=== PATIENT | male | born 1980 | race Hispanic/Latino ===

== ENCOUNTER 2016-12-15 10:29 | Emergency (ER) | payer BC, OTHER ==
[2016-12-15 10:51] VITALS: TEMP 98.3
[2016-12-15 10:55] VITALS: BMI 28.7
[2016-12-15] MEDS ORDERED: Multivitamin (MVI) 10 ML, Thiamine 100 MG, Folic Acid 1 MG in Sodium Chloride 0.9% 1,00... IV ONE (11:04)
--- NOTE | 2016-12-15 11:09 | ED PDOC ---
Arrival/HPI <Sunil Lewis - Last Filed: 12/15/16 11:37> - General Historian: Patient - History of Present Illness Time/Duration: Other (see hpi) Context: Home <Neeta Del Real - Last Filed: 12/18/16 20:05> - General Chief Complaint: High Blood Pressure Time Seen by Provider: 12/15/16 10:33 - History of Present Illness Narrative History of Present Illness (Text): 12/15/16 11:06 This 36 yo female presents to this ED c/o HTN x [employer]. Patient stated he has not taken his BP medication EDARBI, for over 4 weeks. Patient noted he is an alcoholic, and his last drink was 4 days ago. Denies ROBERTS, diplopia, dysarthria, weakness, paresthesias, sob, cp, abdominal pain, dizziness, cms, n/v, or abnormal gait. Denies palpitation or tremors. (Neeta Del Real) Past Medical History - Provider Review Nursing Documentation Reviewed: Yes - Infectious Disease Hx of Infectious Diseases: None - Tetanus Immunization Tetanus Immunization: Unknown - Past Medical History Past Medical History: No Previous - Cardiac Hx Hypertension: Yes Hx Pacemaker: No - Pulmonary Hx Respiratory Disorders: No - Neurological Hx Neurological Disorder: No Hx Paralysis: No - HEENT Hx HEENT Disorder: No - Renal Hx Renal Disorder: No - Endocrine/Metabolic Hx Endocrine Disorders: No - Hematological/Oncological Hx Blood Disorders: No Hx Blood Transfusions: No Hx Blood Transfusion Reaction: No - Integumentary Hx Dermatological Disorder: No - Musculoskeletal/Rheumatological Hx Fractures: Yes (jaw) - Gastrointestinal Hx Gastrointestinal Disorders: No - Genitourinary/Gynecological Hx Genitourinary Disorders: No - Psychiatric Hx Depression: No Hx Substance Use: No - Past Surgical History Past Surgical History: No Previous - Surgical History Hx Orthopedic Surgery: Yes (knee, back) Other/Comment: 2 back surgeries, l4 l5 and l5 s1 2005 and 2007, tonsils nd adenoids,right knee torn meniscus 2014 - Anesthesia Hx Anesthesia: Yes Hx Anesthesia Reactions: No Hx Malignant Hyperthermia: No - Suicidal Assessment Feels Threatened In Home Enviroment: No <Neeta Del Real - Last Filed: 12/18/16 20:05> Family/Social History - Physician Review Nursing Documentation Reviewed: Yes Family/Social History: No Known Family HX Smoking Status: Light Smoker < 10 Cigarettes Daily Hx Alcohol Use: Yes (2 days a week, smokes when drinking) Hx Substance Use: No Hx Substance Use Treatment: No <Neeta Del Real P - Last Filed: 12/18/16 20:05> Allergies/Home Meds <Sunil Lewis - Last Filed: 12/15/16 11:37> <Neeta Del Real - Last Filed: 12/18/16 20:05> Allergies/Adverse Reactions: Allergies No Known Allergies Allergy (Verified 01/26/12 01:50) Home Medications: Home Meds Medication Instructions Recorded Confirmed Azilsartan Medoxomil [Edarbi] 80 mg PO DAILY 07/07/15 12/15/16 Review of Systems - Review of Systems Constitutional: Normal. absent: Fatigue, Weight Change, Fevers, Night Sweats Eyes: Normal ENT: Normal Respiratory: Normal. absent: SOB, Cough Cardiovascular: Normal. absent: Chest Pain, Palpitations Gastrointestinal: Normal. absent: Abdominal Pain, Nausea, Vomiting Genitourinary Male: Normal. absent: Hematuria Musculoskeletal: Normal. absent: Arthralgias, Back Pain, Neck Pain Skin: Normal. absent: Rash Neurological: Normal. absent: Headache, Dizziness, Focal Weakness, Gait Changes , Speech Changes, Facial Droop, Disequilibrium, Seizure Endocrine: Normal Hemo/Lymphatic: Normal Psychiatric: Normal. absent: Anxiety, Depression, Suicidal Ideation <Neeta Del Real P - Last Filed: 12/18/16 20:05> Physical Exam Temperature: Afebrile Blood Pressure: Hypertensive Pulse: Regular Respiratory Rate: Normal Appearance: Positive for: Well-Appearing, Non-Toxic, Comfortable Pain Distress: None Mental Status: Positive for: Alert and Oriented X 3 - Systems Exam Head: Present: Atraumatic, Normocephalic Pupils: Present: PERRL Extroacular Muscles: Present: EOMI Conjunctiva: Present: Normal Mouth: Present: Moist Mucous Membranes Neck: Present: Normal Range of Motion Respiratory/Chest: Present: Clear to Auscultation, Good Air Exchange. No: Respiratory Distress, Accessory Muscle Use Cardiovascular: Present: Regular Rate and Rhythm, Normal S1, S2. No: Murmurs Abdomen: Present: Normal Bowel Sounds. No: Tenderness, Distention, Peritoneal Signs Back: Present: Normal Inspection Upper Extremity: Present: Normal Inspection, Normal ROM, NORMAL PULSES, Neurovascularly Intact, Capillary Refill < 2s. No: Cyanosis, Edema Lower Extremity: Present: Normal Inspection, NORMAL PULSES, Normal ROM, Neurovascularly Intact, Capillary Refill < 2 s. No: Edema, CALF TENDERNESS Neurological: Present: GCS=15, CN II-XII Intact, Speech Normal, Motor Func Grossly Intact, Normal Sensory Function, Normal Cerebellar Funct, Norm Deep Tendon Reflexes, Gait Normal, Memory Normal Skin: Present: Warm, Dry, Normal Color. No: Rashes Psychiatric: Present: Alert, Oriented x 3, Normal Insight, Normal Concentration <Neeta Del Real - Last Filed: 12/18/16 20:05> Vital Signs Temp Pulse Resp BP Pulse Ox 12/15/16 14:48 87 18 152/102 H 98 12/15/16 13:26 80 181/125 H 12/15/16 12:01 78 19 174/120 H 98 12/15/16 11:41 97 H 18 192/133 H 98 12/15/16 11:27 89 202/130 H 12/15/16 11:05 92 H 20 202/130 H 98 12/15/16 10:45 98.3 F 81 20 181/21 H 97 Medical Decision Making <Sunil Lewis - Last Filed: 12/15/16 11:37> Re-evaluation Time: 15:24 Reassessment Condition: Re-examined, Improved <Neeta Del Real - Last Filed: 12/18/16 20:05> ED Course and Treatment: 12/15/16 14:10 Patient stated he feels well on his normal state of health. BP still mild elevated. Clonidine was given 20 minutes ago, so I will wait 30 minutes to repeat BP. Patient stated he feels "aggravated: of his BP is high, since he wants to go home. 12/15/16 15:19 Re-evaluation. Patient feels better. Discussed results and plan with patient who expresses understanding. Counseling was provided regarding the diagnosis and prognosis. All questions answered and there is agreement with the plan to discharge home with instructions. Patient stable for discharge. Return if symptoms persist or worsen. BP has improved. Patient has as a normal gait. (Neeta Del Real) - Lab Interpretations Lab Results: 12/15/16 11:27 12/15/16 11:27 Lab Results 12/15/16 11:27: Sodium 138, Potassium 3.5 L, Chloride 102, Carbon Dioxide 27, Anion Gap 13, BUN 16, Creatinine 0.7, Est GFR ( Amer) > 60, Est GFR (Non- Af Amer) > 60, Random Glucose 87, Calcium 9.0, Total Bilirubin 0.7, AST 82 H, ALT 95 H, Alkaline Phosphatase 41, Total Protein 7.1, Albumin 4.1, Globulin 3.0 , Albumin/Globulin Ratio 1.4 12/15/16 11:27: WBC 8.6 D, RBC 4.89, Hgb 16.0, Hct 45.2, MCV 92.4, MCH 32.7, MCHC 35.4, RDW 12.4, Plt Count 132, MPV 9.2, Gran % 63.7, Lymph % (Auto) 25.8, Park % (Auto) 9.0 H, Eos % (Auto) 1.2 L, Baso % (Auto) 0.3, Gran # 5.50, Lymph # 2.2, Park # 0.8 H, Eos # 0.1, Baso # 0.03 - Medication Orders Current Medication Orders: Discontinued Medications Amlodipine Besylate (Norvasc) 5 mg PO STAT STA Stop: 12/15/16 11:06 Last Admin: 12/15/16 11:27 Dose: 5 mg Chlordiazepoxide (Librium) 50 mg PO STAT STA PRN Reason: Protocol Stop: 12/15/16 11:05 Last Admin: 12/15/16 11:26 Dose: 50 mg Clonidine HCl (Catapres) 0.2 mg PO STAT STA Stop: 12/15/16 12:57 Last Admin: 12/15/16 13:26 Dose: 0.2 mg Multivitamins/Vitamin C 10 ml/Thiamine HCl 100 mg/ Folic Acid 1 mg/ Sodium Chloride 1,011.2 mls @ 1,000 mls/hr IV .Q1H1M ONE Stop: 12/15/16 12:04 Last Admin: 12/15/16 12:08 Dose: 1,000 mls/hr Lorazepam (Ativan) 2 mg PO ONCE ONE PRN Reason: Protocol Stop: 12/15/16 14:11 Last Admin: 12/15/16 15:19 Dose: 2 mg - PA / ICT DEVELOPER / Resident Statement MARCELA has reviewed & agrees with the documentation as recorded. / has examined the patient and agrees with the treatment plan. <Sunil Lewis - Last Filed: 12/15/16 11:37> Disposition/Present on Arrival <Sunil Lewis - Last Filed: 12/15/16 11:37> - Present on Arrival Any Indicators Present on Arrival: No History of DVT/PE: No History of Uncontrolled Diabetes: No Urinary Catheter: No History of Decub. Ulcer: No History Surgical Site Infection Following: None - Disposition Have Diagnosis and Disposition been Completed?: Yes Disposition Time: 15:24 Patient Plan: Discharge <Neeta Del Real - Last Filed: 12/18/16 20:05> - Disposition Diagnosis: Hypertension, Alcohol abuse Disposition: HOME/ ROUTINE Condition: IMPROVED Discharge Instructions (ExitCare): Hypertension (ED) Additional Instructions: Call privated doctor for follow up visit. Take medication as instructed. Avoid alcohol. Return to emergency if symptoms worsen. Prescriptions: amLODIPine [Norvasc] 5 mg PO DAILY #5 tab chlordiazePOXIDE [Chlordiazepoxide HCl] 50 mg PO TID PRN #15 cap PRN Reason: Agitation Referrals: [employer] [employer] Angela Req, [Non-Staff] - Follow up with primary [facility] [Outside] - Follow up with primary [facility] [Outside] - Follow up with primary [facility] [Outside] - Follow up with primary Franki Moreira DO [Staff Provider] - Follow up with primary Forms: [employer] (Malay)
[2016-12-15 11:33] LABS: BASO # 0.03 K/mm3 (0.0-2.0); BASO % 0.3 % (0.0-3.0); EOS # 0.1 (0.0-0.7); EOS % 1.2 % (1.5-5.0); GRAN % 63.7 % (50.0-68.0); LYMPH # 2.2 (1.2-3.4); LYMPH % 25.8 % (22.0-35.0); MEAN CELL VOLUME 92.4 fL (80.0-105.0); MEAN CORPUSCULAR HEMOGLOBIN 32.7 pg (25.0-35.0); MEAN CORPUSCULAR HGB CONC 35.4 g/dl (31.0-37.0); MEAN PLATELET VOLUME 9.2 fl (7.0-11.0); MONO # 0.8 (0.1-0.6); PLATELET COUNT 132 10^3/uL (120.0-450.0); RBC 4.89 10^6/uL (3.5-6.1); RED CELL DISTRIBUTION WIDTH 12.4 % (11.5-14.5); WHITE BLOOD COUNT 8.6 10^3/ul (4.5-11.0)
[2016-12-15 11:42] LABS: ALB/GLOB RATIO 1.4 (1.1-1.8); ALBUMIN 4.1 g/dL (3.0-4.8); ALT/SGPT 95 U/L (7-56); AST/SGOT 82 U/L (15-59); BLOOD UREA NITROGEN 16 mg/dL (7-21); GFR AFRICAN-AMERICAN > 60; GFR NON-AFRICAN AMERICAN > 60
[2016-12-15 12:32] VITALS: O2SAT 98
[2016-12-15 14:48] VITALS: BP 152/102; PULSE 87; RESP 18
--- NOTE | 2016-12-15 21:01 | CARD ---
APPROVED REPORT EKG Measurement Heart [id number] <Conclusion> Normal sinus rhythm Possible Inferior infarct, age undetermined Abnormal ECG
== END 2016-12-15 15:49 | disposition home or self-care (01) ==
LOC: ED 10:29
DX: I10 Essential (primary) hypertension (principal); F10.10 Alcohol abuse, uncomplicated; Z72.0 Tobacco use
CPT/HCPCS: 80053; 85025; 93005; 96374; 99284; J3411; J7040

== ENCOUNTER 2018-04-08 20:37 | Emergency (ER) | payer SELFPAY ==
[2018-04-08 20:49] VITALS: BMI 25.8
[2018-04-08 20:50] VITALS: RESP 18; TEMP 98.3
[2018-04-08 21:56] VITALS: O2SAT 97
[2018-04-08 22:04] VITALS: BP 161/113; PULSE 100
--- NOTE | 2018-04-08 22:09 | ED PDOC ---
Arrival/HPI - General Chief Complaint: High Blood Pressure Past Medical History - Infectious Disease Hx of Infectious Diseases: None - Tetanus Immunization Tetanus Immunization: Unknown - Past Medical History Past Medical History: No Previous - Cardiac Hx Cardiac Disorders: Yes Hx Hypertension: Yes - Pulmonary Hx Respiratory Disorders: No - Neurological Hx Neurological Disorder: No - HEENT Hx HEENT Disorder: No - Renal Hx Renal Disorder: No - Endocrine/Metabolic Hx Endocrine Disorders: No - Hematological/Oncological Hx Blood Disorders: No - Integumentary Hx Dermatological Disorder: No - Musculoskeletal/Rheumatological Hx Musculoskeletal Disorders: Yes Hx Fractures: Yes (jaw) - Gastrointestinal Hx Gastrointestinal Disorders: No - Genitourinary/Gynecological Hx Genitourinary Disorders: No - Psychiatric Hx Psychophysiologic Disorder: No Hx Substance Use: No - Past Surgical History Past Surgical History: No Previous - Surgical History Hx Orthopedic Surgery: Yes (knee, back) Other/Comment: 2 back surgeries, l4 l5 and l5 s1 2005 and 2007, tonsils nd adenoids,right knee torn meniscus 2014 - Anesthesia Hx Anesthesia: Yes Hx Anesthesia Reactions: No Hx Malignant Hyperthermia: No - Suicidal Assessment Feels Threatened In Home Enviroment: No Family/Social History Smoking Status: Light Smoker < 10 Cigarettes Daily Hx Alcohol Use: Yes (2 days a week, smokes when drinking) Hx Substance Use: No Hx Substance Use Treatment: No Allergies/Home Meds Allergies/Adverse Reactions: Allergies No Known Allergies Allergy (Verified 04/08/18 20:57) Home Medications: Home Meds Medication Instructions Recorded Confirmed Azilsartan Medoxomil [Edarbi] 80 mg PO DAILY 07/07/15 04/08/18 Physical Exam Vital Signs Temp Pulse Resp BP Pulse Ox 04/08/18 22:03 100 H 18 161/113 H 97 04/08/18 21:54 104 H 18 168/116 H 97 04/08/18 21:07 111 H 154/119 H 04/08/18 20:49 98.3 F 122 H 18 175/131 H 98 Medical Decision Making ED Course and Treatment: 04/08/18 22:07 Leaving Against Medical Advice (AMA): The patient is choosing to leave against medical advice. I have personally explained to the patient that choosing to do so may result in permanent bodily harm or . I have discussed at great length that without further evaluation and monitoring there may be unforeseen circumstances and/or deterioration causing permanent bodily harm or as a result of their choice. The patient is alert, oriented, and shows the mental capacity to make clear decisions regarding the patients health care at this time. The patient continues to wish to leave against medical advice. In light of the patients decision to leave against medical advice, follow-up has been arranged and the patient is aware of the importance to following up as instructed. The patient has been advised that they should return to the emergency room immediately if they change their mind at any time, or if their condition begins to change or worsen in any way. - Medication Orders Current Medication Orders: Discontinued Medications Clonidine HCl (Catapres) 0.2 mg PO STAT STA Stop: 04/08/18 20:57 Last Admin: 04/08/18 21:07 Dose: 0.2 mg MAR Pulse and Blood Pressure Document 04/08/18 21:07 (Rec: 04/08/18 21:09 [id number]) Pulse Pulse Rate (60-90 beats/min) 111 Blood Pressure Blood Pressure (100/60-150/90 mm Hg) 154/119 Disposition/Present on Arrival - Present on Arrival History of DVT/PE: No History of Uncontrolled Diabetes: No Urinary Catheter: No History of Decub. Ulcer: No History Surgical Site Infection Following: None - Disposition
--- NOTE | 2018-04-08 22:09 | ED PDOC ---
Arrival/HPI - General Historian: Patient - History of Present Illness Narrative History of Present Illness (Text): 04/08/18 21:58 37yo male with pmhx of hypertension who present with complaint of elevated BP. Patient reports drinking alcohol today. He came to ED with his friend. 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 States he came to ED tonight because his face looked red and burning and he knew his BP is high. He denies chest pain, SOB, focal wellness, nausea, headache, slurred speech, facial droop, any other complaint. <Julius Abraham - Last Filed: 04/08/18 22:15> <Dieudonne Thompson - Last Filed: 04/09/18 05:50> - General Chief Complaint: High Blood Pressure Past Medical History - Provider Review Nursing Documentation Reviewed: Yes - Infectious Disease Hx of Infectious Diseases: None - Tetanus Immunization Tetanus Immunization: Unknown - Past Medical History Past Medical History: No Previous - Cardiac Hx Cardiac Disorders: Yes Hx Hypertension: Yes - Pulmonary Hx Respiratory Disorders: No - Neurological Hx Neurological Disorder: No - HEENT Hx HEENT Disorder: No - Renal Hx Renal Disorder: No - Endocrine/Metabolic Hx Endocrine Disorders: No - Hematological/Oncological Hx Blood Disorders: No - Integumentary Hx Dermatological Disorder: No - Musculoskeletal/Rheumatological Hx Musculoskeletal Disorders: Yes Hx Fractures: Yes (jaw) - Gastrointestinal Hx Gastrointestinal Disorders: No - Genitourinary/Gynecological Hx Genitourinary Disorders: No - Psychiatric Hx Psychophysiologic Disorder: No Hx Substance Use: No - Past Surgical History Past Surgical History: No Previous - Surgical History Hx Orthopedic Surgery: Yes (knee, back) Other/Comment: 2 back surgeries, l4 l5 and l5 s1 2005 and 2007, tonsils nd adenoids,right knee torn meniscus 2014 - Anesthesia Hx Anesthesia: Yes Hx Anesthesia Reactions: No Hx Malignant Hyperthermia: No - Suicidal Assessment Feels Threatened In Home Enviroment: No <Julius Abraham A - Last Filed: 04/08/18 22:15> Family/Social History - Physician Review Nursing Documentation Reviewed: Yes Family/Social History: Unknown Family HX Smoking Status: Light Smoker < 10 Cigarettes Daily Hx Alcohol Use: Yes (2 days a week, smokes when drinking) Hx Substance Use: No Hx Substance Use Treatment: No <Julius Abraham - Last Filed: 04/08/18 22:15> Allergies/Home Meds <Julius Abraham - Last Filed: 04/08/18 22:15> <DonnaDieudonne - Last Filed: 04/09/18 05:50> Allergies/Adverse Reactions: Allergies No Known Allergies Allergy (Verified 04/08/18 20:57) Home Medications: Home Meds Medication Instructions Recorded Confirmed RX: Azilsartan Medoxomil [Edarbi] 80 mg PO DAILY 07/07/15 04/08/18 Review of Systems - Physician Review All systems were reviewed & negative as marked: Yes - Review of Systems Constitutional: Normal, Other (Elevated BP) Eyes: Normal ENT: Normal Respiratory: Normal Cardiovascular: Normal Gastrointestinal: Normal Genitourinary Male: Normal Musculoskeletal: Normal Skin: Normal Neurological: Normal Endocrine: Normal Hemo/Lymphatic: Normal Psychiatric: Normal <Julius Abraham A - Last Filed: 04/08/18 22:15> Physical Exam Vital Signs Reviewed: Yes Vital Signs Temp Pulse Resp BP Pulse Ox 04/08/18 21:54 104 H 18 168/116 H 97 04/08/18 21:07 111 H 154/119 H 04/08/18 20:49 98.3 F 122 H 18 175/131 H 98 Temperature: Afebrile Blood Pressure: Normal Pulse: Tachycardic Respiratory Rate: Tachypneic Appearance: Positive for: Well-Appearing, Non-Toxic, Comfortable Pain Distress: None Mental Status: Positive for: Alert and Oriented X 3 - Systems Exam Head: Present: Atraumatic, Normocephalic Pupils: Present: PERRL Extroacular Muscles: Present: EOMI Conjunctiva: Present: Normal Mouth: Present: Moist Mucous Membranes Neck: Present: Normal Range of Motion Respiratory/Chest: Present: Clear to Auscultation, Good Air Exchange. No: Respiratory Distress, Accessory Muscle Use Cardiovascular: Present: Regular Rate and Rhythm, Normal S1, S2. No: Murmurs Abdomen: No: Tenderness, Distention, Peritoneal Signs Back: Present: Normal Inspection Upper Extremity: Present: Normal Inspection. No: Cyanosis, Edema Lower Extremity: Present: Normal Inspection. No: Edema Neurological: Present: GCS=15, CN II-XII Intact, Speech Normal, Motor Func Grossly Intact, Normal Sensory Function, Normal Cerebellar Funct, Gait Normal, Memory Normal Skin: Present: Warm, Dry, Normal Color. No: Rashes Psychiatric: Present: Alert, Oriented x 3, Normal Insight, Normal Concentration <Julius Abraham - Last Filed: 04/08/18 22:15> Vital Signs Temp Pulse Resp BP Pulse Ox 04/08/18 22:03 100 H 18 161/113 H 97 04/08/18 21:54 104 H 18 168/116 H 97 04/08/18 21:07 111 H 154/119 H 04/08/18 20:49 98.3 F 122 H 18 175/131 H 98 <Dieudonne Thompson - Last Filed: 04/09/18 05:50> Medical Decision Making ED Course and Treatment: 04/08/18 22:11 37yo male who present with complaint of elevated BP. He admits to drinking alcohol but was AAO x3 and ambulatory with steady gait without help. EKG clonidine 0.2mg Will reassess pt. EKG Sinus tachy @ 107bpm Pt's BP improved on re evaluation. Plan was to continue monitoring in ED. Pt however states he wants to leave. States he feels fine and will rather go home. He was ambulatory with steady gait. AAO x3 in ED. 04/08/18 22:15 Leaving Against Medical Advice (AMA): The patient is choosing to leave against medical advice. I have personally explained to the patient that choosing to do so may result in permanent bodily harm or . I have discussed at great length that without further evaluation and monitoring there may be unforeseen circumstances and/or deterioration causing permanent bodily harm or as a result of their choice. The patient is alert, oriented, and shows the mental capacity to make clear decisions regarding the patients health care at this time. The patient continues to wish to leave against medical advice. In light of the patients decision to leave against medical advice, follow-up has been arranged and the patient is aware of the importance to following up as instructed. The patient has been advised that they should return to the emergency room immediately if they change their mind at any time, or if their condition begins to change or worsen in any way. - Medication Orders Current Medication Orders: Discontinued Medications Clonidine HCl (Catapres) 0.2 mg PO STAT STA Stop: 04/08/18 20:57 Last Admin: 04/08/18 21:07 Dose: 0.2 mg MAR Pulse and Blood Pressure Document 04/08/18 21:07 (Rec: 04/08/18 21:09 [id number] Pulse Pulse Rate (60-90 beats/min) 111 Blood Pressure Blood Pressure (100/60-150/90 mm Hg) 154/119 <Julius Abraham A - Last Filed: 04/08/18 22:15> - Medication Orders Current Medication Orders: Discontinued Medications Clonidine HCl (Catapres) 0.2 mg PO STAT STA Stop: 04/08/18 20:57 Last Admin: 04/08/18 21:07 Dose: 0.2 mg MAR Pulse and Blood Pressure Document 04/08/18 21:07 (Rec: 04/08/18 21:09 [id number]) Pulse Pulse Rate (60-90 beats/min) 111 Blood Pressure Blood Pressure (100/60-150/90 mm Hg) 154/119 <Dieudonne Thompson - Last Filed: 04/09/18 05:50> - PA / [employer] / Resident Statement / has reviewed & agrees with the documentation as recorded. <Dieudonne Thompson - Last Filed: 04/09/18 05:50> Disposition/Present on Arrival - Present on Arrival Any Indicators Present on Arrival: No History of DVT/PE: No History of Uncontrolled Diabetes: No Urinary Catheter: No History of Decub. Ulcer: No History Surgical Site Infection Following: None - Disposition Have Diagnosis and Disposition been Completed?: Yes Disposition Time: 22:05 <Julius Abraham A - Last Filed: 04/08/18 22:15> <Dieudonne Thompson - Last Filed: 04/09/18 05:50> - Disposition Diagnosis: HTN (hypertension), Alcohol intoxication Disposition: AGAINST MEDICAL ADVICE Condition: STABLE Forms: [employer] (Greek)
--- NOTE | 2018-04-09 10:48 | CARD ---
APPROVED REPORT Date of service: 04/08/2018 EKG Measurement Heart [id number] <Conclusion> Sinus tachycardia Otherwise normal ECG
== END 2018-04-08 22:10 | disposition left against medical advice (07) ==
LOC: ED 20:37
DX: F10.129 Alcohol abuse with intoxication, unspecified (principal); I10 Essential (primary) hypertension; F17.210 Nicotine dependence, cigarettes, uncomplicated